=== PATIENT | female | born 2000 | race African-American/Black ===

== ENCOUNTER 2021-02-23 14:22 | Emergency (ER) | payer SELFPAY ==
[2021-02-23] MEDS ORDERED: Ketorolac Tromethamine 30 MG/ML VIAL ONE (15:29)
[2021-02-23] MEDS ORDERED: Lidocaine Viscous Sol 2% 15 ml UD Cup ONE (15:30)
== END 2021-02-23 16:35 | disposition home or self-care (01) ==
LOC: ERS 14:22
DX: K14.8 Other diseases of tongue (principal); F17.290 Nicotine dependence, other tobacco product, uncomplicated
CPT/HCPCS: 96372; 99283; J1885